=== PATIENT | female | born 1960 | race Caucasian/White ===

== ENCOUNTER → 2025-03-20 10:56 | Outpatient (REF) | payer OTHER, SELFPAY ==
--- NOTE | 2025-03-20 15:19 | EEG.RPT ---
Electroencephalogram Report
Recording
Date of EE03/20/25
Type of EEG: Routine
Length of EEG recordin minutes
Done with Video Recording: Yes
Patient Status: Outpatient
Recording Conditions: Awake and Drowsy
Hyperventilation Performed: Yes
Photic Stimulation Performed: Yes
Report
LESS THAN 1 HOUR REPORT
LESS THAN 1 HOUR EEG INTERPRETATION:
Minimally abnormal EEG for age due to low amplitude
CLINICAL CORRELATION:
This study was suggestive of minimal diffuse cortical dysfunction without focal abnormality. No seizures were recorded.
Clinical correlation is advised.
METHODS:
A 21 channel digitized electroencephalogram (EEG) was performed. The 10/20 international system of electrode placement was used with ECG and lateral/vertical eye movements recorded. Video was recorded. The [employer] quantitative EEG analysis system
was performed.
QUALITY OF STUDY:
Good
ELECTROENCEPHALOGRAPHER IMPRESSION(S):
Background
Low amplitude unorganized anterior-posterior voltage gradient of beta maximal activity, typically alpha.
There were no significant asymmetries of background activity noted.
Sleep
Drowsiness demonstrated
Hyperventilation
Failed to produce activation of the record
Photic Stimulation
Failed to activate the record
ECG
Unremarkable
== END ==
LOC: EEG 10:56
PROVIDERS: ATTENDING PHYSICIAN Internal Medicine
DX: R40.4 Transient alteration of awareness (principal); I49.3 Ventricular premature depolarization
CPT/HCPCS: 93306; 95816